=== PATIENT | male | born 1985 | race Caucasian/White ===

== ENCOUNTER → 2017-01-19 | Outpatient (CLI) | payer OTHER | END | disposition home or self-care (01) | LOC: NUE 01-14 13:30 | DX: E11.9 Type 2 diabetes mellitus without complications (principal) | CPT/HCPCS: 258 ==

== ENCOUNTER → 2017-01-25 | Outpatient (CLI) | payer OTHER | END | disposition home or self-care (01) | LOC: EDT 12-30 10:30 | DX: E11.9 Type 2 diabetes mellitus without complications (principal); Z71.3 Dietary counseling and surveillance ==

== ENCOUNTER → 2017-03-04 | Outpatient (CLI) | payer OTHER | END | disposition home or self-care (01) | LOC: PTH.S 10:17 | DX: E11.9 Type 2 diabetes mellitus without complications (principal) ==